=== PATIENT | female | born 1975 | race Caucasian/White ===

== ENCOUNTER 2016-09-24 11:18 | Emergency (ER) | payer OTHER ==
[~2016-09-24] VITALS: Ht 167.6 cm; Wt 104.5 kg
[2016-09-24 11:32] VITALS: PULSE 96; RESP 20; O2SAT 99
[2016-09-24] MEDS ORDERED: Ondansetron 8 mg ODT Tablet ONE (11:41)
[2016-09-24] MEDS ORDERED: Dexamethasone 10 mg/mL Inj IVPUSH ONE (14:35)
[2016-09-24] MEDS ORDERED: Haloperidol 5 mg/mL Inj IVPUSH ONE (14:35)
[2016-09-24] MEDS ORDERED: MetoCLOpramide 5 mg/mL 2 mL Inj IVPUSH ONE (14:35)
[2016-09-24] MEDS ORDERED: Ketorolac 15 mg/mL Inj IVPUSH ONE (14:35)
[2016-09-24] MEDS ORDERED: 0.9% Sodium Chloride 1,000 ML IV ONE (14:35)
[2016-09-24] MEDS ORDERED: Magnesium Sulf 2 Gm/50mL Water 2 GM in IV Premix 1 EACH IV ONE (14:35)
--- NOTE | 2016-09-24 14:42 | ED.REPORT ---
HPI-Headache Date of Service Sep 24, 2016 ED Provider: Rui Echols PA-C Jb is a 41-year-old female with history of migraines presents with a headache. States she has a severe headache has been present for roughly 1-1/2 weeks. This is a familiar headache to her. She describes the pain as throbbing over her left eye. She was seen by her neurologist 2 days ago. She received Botox treatment on August 05. She reports that her longest episode of headache once lasted 3 months. Associated with nausea and vomiting. Tried many medications to little effect. Denies fever, sudden onset, aura, vision changes, neurological deficits. Nursing Notes Stated Complaint: MIGRAINE Chief Complaint: Headache Nursing Notes Reviewed: Yes Allergies: Coded Allergies: hydrocodone (Verified Allergy, Severe, 09/24/16) verapamil (Verified Allergy, Severe, vertigo, 09/24/16) Uncoded Allergies: BEE STINGS (Allergy, Severe, hives, 12/01/12) General Time Seen by MD: 14:09 Chief Complaint Headache Sudden in Onset?: No Past Medical History Past Medical History Migraine headaches Depression Past Surgical History Adenectomy Tonsillectomy Family History Aneurysms Smoking History Never Smoker Social History Alcohol Use: Denies alcohol use Ambulatory Status Independent Review of Systems Review of Systems Note: Negative unless stated otherwise in history of present illness Physical Exam General: Well appearing, well developed, well nourished, no acute distress. Moderate distress. Lying on the gurney in a darkened room. Head: Atraumatic, normocephalic. Eyes: No scleral icterus or injection. No discharge. Vision grossly intact. ENT: Voice clear, hearing grossly intact. Respiratory: No respiratory distress, no increased work of breathing. Speaks in complete sentences. Skin: Warm and dry. Neurological: Normal gait, Romberg. Negative pronator drift. Cranial nerves: Vision grossly intact, PERRL, EOMI. Facial motion symmetrical, sensation to light touch over forehead, maxilla and mandible present and equal B /L. Voice clear and fluent, no drooling/pooling of saliva, uvula rises midline. Psychological: alert and oriented. Speech appropriate, linear and logical. Irritable. Initial Vital Signs Vital Signs (First) Date Time Temp Pulse Resp B/P Pulse Ox O2 Delivery O2 Flow Rate FiO2 09/24/16 11:32 36.4 96 20 99 Room Air 09/24/16 16:23 122/84 Initial VS: Vital signs normal Interpretation & Diagnostics Lab Results Interpretation Result Diagram: 09/24/16 1421 09/24/16 1421 Test 09/24/16 14:21 White Blood Count 8.2th/mm3 (3.8-10.1) Red Blood Count 4.58mil/mm3 (3.90-5.20) Hemoglobin 12.5g/dL (12.0-15.6) Hematocrit 39.3% (35.0-46.0) Mean Corpuscular Volume 85.8fL (81-100) Mean Corpuscular Hemoglobin 27.3pg (27.0-35.0) Mean Corpuscular Hemoglobin Concent 31.8% (32.0-37.0) Red Cell Distribution Width 14.0% (12.3-15.4) Platelet Count 311bil/L (150-400) Neutrophils (%) (Auto) 79.8% (40-74) Lymphocytes (%) (Auto) 17.1% (14-46) Monocytes (%) (Auto) 2.4% (4-12) Eosinophils (%) (Auto) 0% (0-5) Basophils (%) (Auto) 0.2% (0-3) Hold Purple Top Tube Received (Received) Hold Blue Top Tube Received (Received) Sodium Level 135mEq/L (134-144) Potassium Level 4.5mEq/L (3.5-5.2) Chloride Level 97mEq/L (97-108) Carbon Dioxide Level 23mmol/L (18-29) Blood Urea Nitrogen 10mg/dL (6-24) Creatinine 0.61mg/dL (0.57-1.00) Estimat Glomerular Filtration Rate 154mL/min (>59) Glucose Level 105mg/dL (60-99) Calcium Level 9.2mg/dL (8.5-10.1) Total Bilirubin 0.3mg/dL (0.0-1.2) Aspartate Amino Transf (AST/SGOT) 19U/L (0-50) Alanine Aminotransferase (ALT/SGPT) 19U/L (0-32) Alkaline Phosphatase 89U/L (25-150) Total Protein 7.3g/dL (6.4-8.4) Albumin 4.4g/dL (3.4-5.0) Hold [place] Top Tube Received (Received) Re-Eval/Medical Decision Med Decision/Clinical Course 41-year-old female with a history of migraine headaches presents with a headache. This is a familiar headache to her, however severe and extended. A saline nausea and vomiting. She reports she has had a headache for a week and half. She was assessed by her neurologist 2 days ago. Physical examination is benign with a normal neurological examination. CBC and CMP are normal. Patient responds well to treatment with normal saline, acetaminophen, Toradol, diphenhydramine, dexamethasone, haloperidol, magnesium, metoclopramide. She states her current headache is "99% resolved" and wishes to be discharged home. Her headache is without red flag symptoms for subarachnoid hemorrhage, tumor, carbon monoxide poisoning. Discharged with instructions or analgesia in the event of headache return, primary care follow- up, emergency return precautions. She verbalizes understanding of and agreement to the plan Re-Evaluation/Progress : Time of Eval: 15:35 )( Patient Status: Condition improved Re-Evaluation/Progress Note: Patient reports her headache pain is significantly improved. Discharge & Departure Impression: Primary Impression: Migraine Migraine type: without aura Status migrainosus presence: without status migrainosus Intractability: not intractable Qualified Code: G43.009 - Migraine without aura, not intractable, without status migrainosus Disposition: Home Discharge Condition All VS Reviewed: Yes Condition: Stable Patient Instructions: Migraine Headache (ED) Additional Instructions: Evaluation for a headache in the emergency department. History and physical are reassuring this is unlikely to be caused by an immediately dangerous condition. He seemed of responded well to therapy here in the department and have asked to be discharged home. I believe you are stable and safe to be discharged. I recommend taking your Imitrex along with 600 mg of ibuprofen should feel your headaches starting to return. Follow-up with your primary care provider in the next few days to further assess the treatment of your headaches. During the emergency department for any new or worsening symptoms including headache that is not improved by medications, different or sudden headache, neurological changes such as weakness or difficulty speaking, fever. Referrals: Saravanan Hummel MD (PCP) EDSupervising Provider for APC: Al Ny MD copies to: Saravanan Hummel MD, Seth PA-C Sep 24, 2016 14:42
[2016-09-24 16:07] LABS: BASOPHILS % (AUTO) 0.2 % (0-3); EOSINOPHILS % (AUTO) 0 % (0-5); MONOCYTES % (AUTO) 2.4 % (4-12); Mean Corpuscular Hemoglobin 27.3 pg (27.0-35.0); Mean Corpuscular Volume 85.8 fL (81-100); NEUTROPHILS % (AUTO) 79.8 % (40-74); Platelet Count 311 bil/L (150-400)
[2016-09-24 16:23] VITALS: BP 122/84; PULSE 87; RESP 20; O2SAT 100
== END 2016-09-24 16:25 | disposition home or self-care (01) ==
LOC: SED 11:18
DX: G43.009 Migraine without aura, not intractable, without status migrainosus (principal); Z88.5 Allergy status to narcotic agent; Z88.8 Allergy status to other drugs, medicaments and biological substances
CPT/HCPCS: 36415; 80053; 85025; 96361; 96374; 96375; 99285; J1100; J1200; J1630; J1885; J2765; J7030